=== PATIENT | female | born 1970 | race Two or more races ===

== ENCOUNTER 2021-12-23 20:40 | Emergency (ER) | payer MEDICAID, OTHER ==
[~2021-12-23] VITALS: Ht 160 cm; Wt 61.2 kg
[2021-12-23] MEDS ORDERED: MORPHINE SULFATE INJ 4 MG/ML DISP.SYRIN ONE (21:19)
[2021-12-23] MEDS: MORPHINE SULFATE INJ 2 MG/ML DISP.SYRIN IM ONE (21:22)
--- NOTE | 2021-12-23 21:28 | NUR ---
PT UNABLE TO GIVE URINE AT THIS TIME.
--- NOTE | 2021-12-23 21:28 | NUR ---
[facility] C/O DIFFUSED ABDOMINAL PAIN. WAS SEEN AND DX AT [facility] BUT PT NEVER PICKED UP MEDICATIONS. PATIENT ALERT AND ORIENTED X3. AMBULATORY WITH NON LABORED BREATHING IN BED 07 ON MONITOR.
[2021-12-23 22:48] LABS: BASOPHILS % (AUTO) 0.6 % (0.0-2.0); EOSINOPHILS % (AUTO) 7.7 % (0.0-6.0); HEMATOCRIT 36 % (33-45); HEMOGLOBIN 11.4 g/dL (11.5-14.8); LYMPHOCYTES # (AUTO) 1.8 K/uL (0.8-4.8); LYMPHOCYTES % (AUTO) 23.6 % (20.0-44.0); MEAN CORPUSCULAR HGB CONC 32 g/dl (31.0-36.0); MEAN CORPUSCULAR VOLUME 90 fL (82-100); MONOCYTES # (AUTO) 0.5 K/uL (0.1-1.30); NEUTROPHILS # (AUTO) 4.7 K/uL (1.8-8.9); NEUTROPHILS % (AUTO) 61.1 % (43.0-81.0); PLATELET COUNT (AUTO) 352 K/uL (150-450); RED BLOOD CELL COUNT(AUTO) 3.94 MIL/uL (4.0-5.2); WHITE BLOOD COUNT (AUTO) 7.6 K/uL (4.3-11.0)
[2021-12-23 23:03] LABS: ALBUMIN 3.7 g/dL (3.4-5.0); BILIRUBIN,TOTAL 0.1 mg/dL (0.2-1.0); CALCIUM, SERUM 8.1 mg/dL (8.5-10.1); CREATININE 0.7 mg/dL (0.6-1.3); POTASSIUM 3.5 mmol/L (3.5-5.1); TOTAL PROTEIN, SERUM 7.4 g/dL (6.4-8.2)
[2021-12-23] MEDS ORDERED: KETOROLAC TROMETHAMINE INJ 30 MG/ML VIAL ONE (23:43)
[2021-12-23] MEDS: KETOROLAC TROMETHAMINE INJ 30 MG/ML VIAL IV ONE (23:46)
--- NOTE | 2021-12-23 23:47 | NUR ---
TORADOL GIVEN RD IM PER MD ORDER
[2021-12-24] MEDS ORDERED: ONDA4TAB5 PO (01:50)
[2021-12-24] MEDS ORDERED: HYDR-3980 PO (01:50)
--- NOTE | 2021-12-24 02:05 | NUR ---
Patient discharged to home in stable condition. Written and verbal after care instructions given. Patient verbalizes understanding of instruction.
[2021-12-24 02:06] VITALS: BP 148/70
== END 2021-12-24 02:06 | disposition home or self-care (01) ==
LOC: ER 20:42
DX: K80.20 Calculus of gallbladder without cholecystitis without obstruction (principal); Z59.00 Homelessness unspecified
CPT/HCPCS: 36415; 76705; 80048; 80076; 83690; 85025; 96372 ×2; 99284; J1885; J2270